=== PATIENT | male | born 1940 | race Caucasian/White ===

== ENCOUNTER 2017-02-26 14:00 | Inpatient (IN) | payer MEDICARE, OTHER ==
[~2017-02-26] VITALS: Ht 177.8 cm; Wt 75.4 kg
--- NOTE | ~2017-02-26 | DS ---
PATIENT'S NAME: SUSHMA GRAFF [facility] AGE: 76 Y [address] ROOM: [place] [address] LOCATION: [facility] [place] ADMIT DATE: 03/02/2017 Discharge Summary DISCHARGE DATE: 03/08/2017 FAMILY PHYSICIAN: Hudson Hogan MD ATTENDING PHYSICIAN: Quan Sutton ADMISSION DIAGNOSES: 1. Benign prostatic hyperplasia. 2. Urinary retention. 3. Lower urinary tract symptoms including urinary frequency, incomplete bladder emptying, and urinary incontinence. 4. Right inguinal hernia. 5. History of elevated PSA. DISCHARGE DIAGNOSES: 1. Benign prostatic hyperplasia. 2. Urinary retention. 3. Lower urinary tract symptoms including urinary frequency, incomplete bladder emptying, and urinary incontinence. 4. Right inguinal hernia. 5. History of elevated PSA. REASON FOR HOSPITALIZATION: The patient is a pleasant 76-year-old male with history of BPH with bladder outlet obstruction. He also has a history of elevated PSA and had underwent multiple previous negative prostate needle biopsies. Most recent prostate biopsy on 08/20/2016 was negative for prostate cancer, and he had an ultrasound volume of 204 cm3. The patient also has a history of large right inguinal hernia. PROCEDURES PERFORMED: 1. Robotic-assisted laparoscopic simple prostatectomy. 2. Robotic-assisted laparoscopic right inguinal hernia repair with mesh placement. HOSPITAL COURSE: The patient was admitted on the above date and underwent the above-stated procedures without complication. The patient underwent relatively uneventful hospital course. Prior to the patient's discharge home, he was having bowel function and his pain was well controlled. Also he was tolerating regular diet and ambulating prior to discharge home, and we were able to wean him off the continuous bladder irrigation postoperatively. CONDITION ON DISCHARGE: Condition of the patient on discharge, good. DISCHARGE INSTRUCTIONS: The patient received routine discharge instructions for the above procedures that he underwent, and we will plan to see him back PATIENT'S NAME: MITZI GRAFFH Schuyler [facility] AGE: 76 Y [address] ROOM: [place] [address] LOCATION: [facility] [place] ADMIT DATE: 03/02/2017 Discharge Summary DISCHARGE DATE: 03/08/2017 FAMILY PHYSICIAN: Hudson Hogan MD ATTENDING PHYSICIAN: Quan Sutton for followup in Urology Clinic in [facility] in [place], [place], on 03/15/2017 for a catheter removal and trial of void. MD JANIE KAYE/denis /[id number] d: 03/11/17704 t: 03/25/17 1918, DISCHARGE SUMMARY
--- NOTE | ~2017-02-26 | OR ---
PATIENT'S NAME: SUSHMA GRAFF [facility] AGE: 76 Y [address] ROOM: [place] [address] LOCATION: [facility] [place] ADMIT DATE: 03/02/2017 OR/Procedure Report DISCHARGE DATE: FAMILY PHYSICIAN: Hudson Hogan MD ATTENDING PHYSICIAN: NISHANT SUTTON SURGEON: Chun Phillips MD DIESEL PLANT OPERATOR: DATE OF PROCEDURE: 03/02/2017 PREOPERATIVE DIAGNOSIS: Reducible right inguinal hernia. POSTOPERATIVE DIAGNOSIS: Reducible right inguinal hernia. PROCEDURE PERFORMED: Robotic assisted laparoscopic repair of reducible right inguinal hernia. SURGEON: Chun Phillips M.D. ASSIST: Dr. Sutton. ANESTHESIA: General endotracheal. ESTIMATED BLOOD LOSS: 10 mL for this portion of the operation. REASON FOR PROCEDURE: The patient is a 76-year-old gentleman, who has had an increasing symptomatic right inguinal hernia for a while now. He was scheduled to do a robotic prostatectomy with Dr. Sutton. I was asked to assist with the repair of his right inguinal hernia. I saw the patient preoperatively and examined him. We also discussed the risks and benefits of the procedure and he agreed to proceed with repair. PROCEDURE IN DETAIL: Dr. Sutton initially started the procedure and docked the trocars, he performed the robotic prostatectomy and will dictate that separately. On entering the procedure, I went straight to the console. We use scissors to divide the peritoneum from approximately the anterior superior iliac spine to the medial umbilical ligament. We then bluntly took down the peritoneum. The hernia sac was mobilized off the cord structures and reduced. Narinder's ligament was fully exposed once an adequate pocket had been created, the 3D pro right inguinal mesh was placed through the 12-mm trocar. This was placed into the defect. A suture was used to suture to attach Narinder's ligament and the mesh. We then also placed a suture on the upper lateral part of the mesh to the anterior abdominal wall. The mesh seemed to lay smoothly in place. The peritoneal was pulled up and did not fold or move the mesh at all. The peritoneum was sutured back in place with the V-Loc suture. A small defect in the peritoneum was closed with a [id number] Vicryl. [facility] 76 [facility] [address] ROOM: [place] [address] LOCATION: [facility] [place] ADMIT DATE: 03/02/2017 OR/Procedure Report DISCHARGE DATE: FAMILY PHYSICIAN: Hudson Hogan MD ATTENDING PHYSICIAN: NISHANT SUTTON then docked the instruments he is going to extract the prostate and close the incisions. POSTPROCEDURE PLAN: The patient will be admitted for observation per Dr. Sutton. I will plan on checking him while he is here. He is to avoid any heavy lifting for a month. MD KATHERINE RAMOS/denis /[id number] d: 03/02/17 1518 t: 03/08/17 1207, OPERATIVE SUMMARY
--- NOTE | ~2017-02-26 | OR ---
PATIENT'S NAME: SUSHMA GRAFF [facility] AGE: 76 Y [address] ROOM: [place] [address] [place] [facility] [place]: 03/02/2017 OR/Procedure Report DISCHARGE DATE: FAMILY PHYSICIAN: Hudson Hogan MD ATTENDING PHYSICIAN: NISHANT SUTTON SURGEON: Nishant Sutton MD JIG BOX OPERATOR: Luis Mckeon MD. DATE OF PROCEDURE: 03/02/2017 PREOPERATIVE DIAGNOSES: 1. Benign prostatic hyperplasia. 2. Urinary retention. 3. Lower urinary tract symptoms including urinary frequency, incomplete bladder emptying, and urinary incontinence. 4. Right inguinal hernia. 5. History of elevated PSA. POSTOPERATIVE DIAGNOSIS: Same as above OPERATION PERFORMED: Robotic-assisted laparoscopic simple prostatectomy. ANESTHESIA ADMINISTERED: General endotracheal anesthesia. INDICATIONS FOR PROCEDURE: The patient is a pleasant 76-year-old male with history of BPH with bladder outlet obstruction. He also has a history of elevated PSA and had undergone multiple previous negative prostate needle biopsies. Most recent prostate biopsy on August 20, 2016, which was negative for prostate cancer and he had an ultrasound volume of 204.3 cu cm. The patient also has a history of large right inguinal hernia and is also undergoing an inguinal hernia repair today with Dr. Phillips concurrently with a simple prostatectomy. The patient was explained the risks, benefits, indications, and alternatives to the above procedure and wished to proceed and consented freely. DESCRIPTION OF OPERATION: The patient was brought back to the operating room where he was placed on the OR table in the supine position. A surgical time- out was called where patient identification, surgical site, and procedure were then verified. We also did verify that the patient received an IV cephalosporin antibiotic within an hour of beginning the procedure. The patient then underwent successful administration of general endotracheal anesthesia. The patient was then moved and placed in a low lithotomy position. His abdomen and genital area were then prepped and draped in the usual sterile fashion. The patient was then placed in steep Trendelenburg. A Rascon catheter had been anchored utilizing a 16-Croatian catheter. We then made a supraumbilical incision. The rectus fascia was grasped and elevated, and we pierced the peritoneum with a Veress needle and insufflated to 15 mmHg. We then passed an 8 mm non-bladed trocar easily into the peritoneum. We PATIENT'S NAME: SUSHMA GRAFF [facility] AGE: 76 Y [address] ROOM: [place] [address] [place] [facility] [place]: 03/02/2017 OR/Procedure Report DISCHARGE DATE: FAMILY PHYSICIAN: Hudson Hogan MD ATTENDING PHYSICIAN: NISHANT SUTTON immediately passed the laparoscope and did not observe any injury to internal structures, so we placed 4 additional trocars, two 8 mm trocars in the right abdomen and an 8 mm and 12 mm trocar in the left abdomen in the routine positions for the robotic technique. The [employer] Xi robot was then docked and used for the remainder of the case. I began by opening up the posterior bladder wall near the dome and dropped down a posterior bladder flap where I was able to easily view his bladder neck and prostate at this point. After making the cystotomy, I placed a Vicryl retraction suture in the median lobe and this was used to elevate his median lobe and better visualize the junction of his bladder neck and prostate. I could easily view the ureteral orifices at this point. I then started by making a posterior incision in the mucosa overlying the adenoma. Once the plane between the prostatic capsule and the adenoma was identified, I began performing enucleation of the prostate using monopolar scissors and blunt dissection. I continued in this plane between the prostatic capsule and adenoma. I extended my mucosal incision circumferentially around the prostate. 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 Hemostasis was obtained by direct cautery and suture ligation in the prostatic fossa. I also had placed FloSeal within the prostatic fossa. I then utilized a 3-0 V-Loc suture to advance the bladder mucosa down into the prostatic posterior fossa. Hemostasis was inspected for and was adequate. I then placed a 24-Croatian 3-way Rascon catheter and the balloon was inflated to 50 mL, and the cystotomy was closed in 2 layers with the first layer utilizing a 2-0 V-Loc running suture and the second layer with a 2-0 V-Loc running suture. The bladder was irrigated with 250 mL of normal saline with no leak and our closure was watertight. The prostatic adenoma was then placed in an EndoCatch bag. I then turned the console over to Dr. Phillips who then performed robotic-assisted laparoscopic right inguinal hernia repair with mesh. Please see his dictation for his portion of the procedure. The robot was then undocked and the EndoCatch bag was drawn up to the midline wound. All trocars had been removed. The supraumbilical incision was extended to allow for removal of the prostatic adenoma. The rectus fascia was then reapproximated with a heavy PDS suture and the skin was closed with running subcuticular stitches. All wounds were infiltrated with Marcaine and covered with Dermabond. The patient was then taken out of the lithotomy position where he was then extubated without event, transferred to the recovery bed and transported to the recovery room in good condition. COMPLICATIONS: None. ESTIMATED BLOOD LOSS: 450 mL. SPECIMENS: Prostatic adenoma for pathologic analysis. DRAINS: Indwelling 24-Croatian 3-way Rascon catheter to continuous bladder PATIENT'S NAME: SUSHMA GRAFF [facility] AGE: 76 Y [address] ROOM: [place] [address] [place] [facility] [place]: 03/02/2017 OR/Procedure Report DISCHARGE DATE: FAMILY PHYSICIAN: Hudson Hogan MD ATTENDING PHYSICIAN: NISHANT SUTTON. FOLLOWUP PLAN: The patient will be admitted on continuous bladder irrigation and we will slowly wean him off the irrigation with likely discharge home on postoperative day #2 or 3. NISHANT SUTTON MD GP/modl /[id number] CC: Hudson Hogan MD d: 03/03/17 0112 t: 03/03/17 1347, OPERATIVE SUMMARY
[~2017-02-26 14:00] MED LIST: NIFEREX-150) (150 MG PO; VITAMIN B-1000 MCG/M IM
[2017-03-02 13:03] LABS: HEMATOCRIT 43.9 % (37.0-53.0); HEMOGLOBIN 12.1 g/dL (11.0-16.0); MCH 18.4 pg (27.0-34.0); MCHC 27.6 gm/dL (32.0-36.5); MCV 66.7 fl (83.0-98.0); MPV 9.6 fl (9.4-12.4); RBC 6.58 M/uL (3.50-5.50); RDW-CV 21.8 % (11.9-14.6)
[2017-03-02 13:05] LABS: PLATELET COUNT 1182 K/uL (150-450); WBC 38.4 K/uL (4.0-11.0)
[2017-03-02 14:11] LABS: ABSOLUTE NEUTROPHIL CT (ANC) 34.6 K/uL (1.4-9.0); BANDED NEUTROPHIL # 1.5 K/uL (0.0-0.1); BANDED NEUTROPHILS % 4 %; MONOCYTE # 2.3 K/uL (0.0-1.0); SEGMENTED NEUTROPHIL % 86 %
[2017-03-02 14:12] LABS: LYMPHOCYTE # 1.5 K/uL (0.8-4.0); LYMPHOCYTE % 4 %
[2017-03-03 05:19] LABS: HEMOGLOBIN 9.5 g/dL (11.0-16.0); MCH 18.6 pg (27.0-34.0); MCV 66.1 fl (83.0-98.0); MPV 9.9 fl (9.4-12.4); RBC 5.11 M/uL (3.50-5.50); RDW-CV 20.7 % (11.9-14.6)
[2017-03-03 05:21] LABS: HEMATOCRIT 33.8 % (37.0-53.0); MCHC 28.1 gm/dL (32.0-36.5); PLATELET COUNT 1008 K/uL (150-450); WBC 38.7 K/uL (4.0-11.0)
[2017-03-03 05:36] LABS: CREATININE 2.3 mg/dL (0.6-1.3)
[2017-03-03 05:37] LABS: CALCIUM 7.2 mg/dL (8.5-10.5)
[2017-03-03 05:45] LABS: ABSOLUTE NEUTROPHIL CT (ANC) 36.8 K/uL (1.4-9.0); BANDED NEUTROPHIL # 6.6 K/uL (0.0-0.1); BANDED NEUTROPHILS % 17 %; LYMPHOCYTE # 1.5 K/uL (0.8-4.0); LYMPHOCYTE % 4 %; MONOCYTE # 0.4 K/uL (0.0-1.0); SEGMENTED NEUTROPHIL # 30.2 K/uL (1.4-9.0); SEGMENTED NEUTROPHIL % 78 %
[2017-03-04 05:21] LABS: HEMATOCRIT 27.7 % (37.0-53.0); MCV 65.6 fl (83.0-98.0); MPV 9.1 fl (9.4-12.4); RBC 4.22 M/uL (3.50-5.50); RDW-CV 20.3 % (11.9-14.6)
[2017-03-04 05:27] LABS: HEMOGLOBIN 7.8 g/dL (11.0-16.0); MCH 18.5 pg (27.0-34.0); MCHC 28.2 gm/dL (32.0-36.5); PLATELET COUNT 764 K/uL (150-450); WBC 25.6 K/uL (4.0-11.0)
[2017-03-04 05:34] LABS: ANION GAP 10.7 (10.0-19.0); POTASSIUM 4.7 mMol/L (3.7-5.1)
[2017-03-04 05:35] LABS: CALCIUM 7.2 mg/dL (8.5-10.5)
[2017-03-04 05:57] LABS: ABSOLUTE NEUTROPHIL CT (ANC) 24.3 K/uL (1.4-9.0); BANDED NEUTROPHIL # 4.6 K/uL (0.0-0.1); BANDED NEUTROPHILS % 18 %; LYMPHOCYTE # 0.5 K/uL (0.8-4.0); LYMPHOCYTE % 2 %; MONOCYTE # 0.5 K/uL (0.0-1.0); SEGMENTED NEUTROPHIL # 19.7 K/uL (1.4-9.0); SEGMENTED NEUTROPHIL % 77 %
[2017-03-05 06:11] LABS: BASOPHIL # 0.1 K/uL (0.0-0.2); BASOPHIL % 0.5 %; EOSINOPHIL # 0.2 K/uL (0.0-0.5); EOSINOPHIL % 0.9 %; HEMATOCRIT 27.4 % (37.0-53.0); IMMATURE GRANULOCYTE # 0.2 K/uL (0.0-0.3); IMMATURE GRANULOCYTE % 0.9 %; LYMPHOCYTE # 0.6 K/uL (0.8-4.0); LYMPHOCYTE % 3.5 %; MCV 67.2 fl (83.0-98.0); MONOCYTE # 0.7 K/uL (0.0-1.0); MONOCYTE % 3.7 %; MPV 9.5 fl (9.4-12.4); NEUTROPHIL # (ANC) 16.6 K/uL (1.4-9.0); NEUTROPHIL % 90.5 %; NRBC % 0 /100WBC (0-0.00); RBC 4.08 M/uL (3.50-5.50); RDW-CV 20.1 % (11.9-14.6)
[2017-03-05 06:12] LABS: HEMOGLOBIN 7.6 g/dL (11.0-16.0); MCH 18.6 pg (27.0-34.0); MCHC 27.7 gm/dL (32.0-36.5); PLATELET COUNT 576 K/uL (150-450); WBC 18.4 K/uL (4.0-11.0)
[2017-03-05 06:25] LABS: CALCIUM 7.6 mg/dL (8.5-10.5); CREATININE 1.2 mg/dL (0.6-1.3)
[2017-03-06 05:43] LABS: BASOPHIL # 0.1 K/uL (0.0-0.2); BASOPHIL % 0.5 %; EOSINOPHIL # 0.3 K/uL (0.0-0.5); EOSINOPHIL % 2.3 %; HEMATOCRIT 27.3 % (37.0-53.0); IMMATURE GRANULOCYTE # 0.1 K/uL (0.0-0.3); IMMATURE GRANULOCYTE % 0.6 %; LYMPHOCYTE # 0.8 K/uL (0.8-4.0); LYMPHOCYTE % 5.7 %; MCH 18.3 pg (27.0-34.0); MCHC 27.1 gm/dL (32.0-36.5); MCV 67.6 fl (83.0-98.0); MONOCYTE # 0.4 K/uL (0.0-1.0); MONOCYTE % 2.9 %; MPV 10.5 fl (9.4-12.4); NEUTROPHIL # (ANC) 12.9 K/uL (1.4-9.0); NRBC % 0 /100WBC (0-0.00); PLATELET COUNT 664 K/uL (150-450); RBC 4.04 M/uL (3.50-5.50); RDW-CV 20.2 % (11.9-14.6); WBC 14.7 K/uL (4.0-11.0)
[2017-03-06 05:47] LABS: BLOOD UREA NITROGEN 18 mg/dL (6-24); CALCIUM 7.7 mg/dL (8.5-10.5); CHLORIDE 109 mMol/L (96-110); CO2 27 mMol/L (22-32); ESTIMATED GFR (MDRD EQUATION) > 60; SODIUM 143 mMol/L (135-145)
[2017-03-06 05:48] LABS: HEMOGLOBIN 7.4 g/dL (11.0-16.0)
[2017-03-07 05:21] LABS: BASOPHIL # 0.1 K/uL (0.0-0.2); BASOPHIL % 0.6 %; EOSINOPHIL # 0.4 K/uL (0.0-0.5); EOSINOPHIL % 2.5 %; HEMATOCRIT 26.6 % (37.0-53.0); IMMATURE GRANULOCYTE # 0.1 K/uL (0.0-0.3); IMMATURE GRANULOCYTE % 0.7 %; LYMPHOCYTE # 0.8 K/uL (0.8-4.0); LYMPHOCYTE % 5.8 %; MCH 18.6 pg (27.0-34.0); MCHC 27.8 gm/dL (32.0-36.5); MONOCYTE # 0.4 K/uL (0.0-1.0); MONOCYTE % 2.6 %; MPV 9.5 fl (9.4-12.4); NEUTROPHIL # (ANC) 12.5 K/uL (1.4-9.0); NEUTROPHIL % 87.8 %; NRBC % 0 /100WBC (0-0.00); PLATELET COUNT 631 K/uL (150-450); RBC 3.97 M/uL (3.50-5.50); RDW-CV 20.1 % (11.9-14.6); WBC 14.2 K/uL (4.0-11.0)
[2017-03-07 05:22] LABS: HEMOGLOBIN 7.4 g/dL (11.0-16.0)
[2017-03-07 05:37] LABS: ANION GAP 8.1 (10.0-19.0); BLOOD UREA NITROGEN 18 mg/dL (6-24); CALCIUM 7.7 mg/dL (8.5-10.5); CHLORIDE 112 mMol/L (96-110); CO2 25 mMol/L (22-32); ESTIMATED GFR (MDRD EQUATION) > 60; POTASSIUM 4.1 mMol/L (3.7-5.1); SODIUM 141 mMol/L (135-145)
[2017-03-08] MEDS ORDERED: COLACE100 MG PO (10:10)
[2017-03-08] MEDS ORDERED: NEOSPORIN1 PKT TOP (10:12)
[2017-03-08] MEDS ORDERED: NORCO 5-325 TA1 EACH PO (10:14)
[2017-03-08] MEDS ORDERED: LEVAQUIN500 MG PO (10:15)
== END 2017-03-08 17:15 | disposition disaster alternative care site (69) | DRG 717 ==
LOC: GPOC 14:00 → GMSU 03-02 05:30 → EDSTATUS 03-02 07:00 → GPOC 03-02 07:00 → GMSU 03-02 15:43
PROVIDERS: ADMIT Urology
PROC: 0YU54JZ Supplement Right Inguinal Region with Synthetic Substitute, Percutaneous Endoscopic Approach (ICD-10-PCS; principal; 2017-03-02)
PROC: 0VB04ZZ Excision of Prostate, Percutaneous Endoscopic Approach (ICD-10-PCS; principal; 2017-03-02)
PROC: 8E0W4CZ Robotic Assisted Procedure of Trunk Region, Percutaneous Endoscopic Approach (ICD-10-PCS; principal; 2017-03-02)
DX: N40.1 Benign prostatic hyperplasia with lower urinary tract symptoms (principal); D62 Acute posthemorrhagic anemia; D51.0 Vitamin B12 deficiency anemia due to intrinsic factor deficiency; K40.90 Unilateral inguinal hernia, without obstruction or gangrene, not specified as recurrent
CPT/HCPCS: C1781; J0131; J0690; J1100; J1170; J1644; J2270; J2405; J3010; J7030; J7120